=== PATIENT | female | born 1965 | race Caucasian/White ===

== ENCOUNTER → 2016-06-12 | Outpatient (CLI) | payer BC ==
[~2016-06-12] MED LIST: ASPIRIN 81MG TA81 MG PO; JINTELI 5 MCG-11 TAB PO; LEXAPRO 10 MG T10 MG PO; LOPRESSOR 25MG.25 MG PO; LORTAB 5/500 501 TAB PO; MOTRIN600 MG PO; PERCOCET 325 MG1 TA3 PO; PREDNISONE50 MG PO; PRILOSEC OTC20 MG PO; TOPROL XL25 MG PO
--- NOTE | 2016-06-12 15:28 | CARDIOVASCULAR REPORT ---
"Cerebrovascular Exam Indications: 780.2 Syncope and collapse. IMPRESSIONS 1. The bilateral vertebral arteries are patent with normal antegrade flow. 2. Study suggests less than 20% stenosis involving the right internal carotid artery. 3. Study suggests 20-49% stenosis involving the left internal carotid artery. Carotid duplex study. Complete study and Doppler flow study including spectral analysis, color and christine scale imaging. Height: Height: 154.9cm. Height: 61in. Weight: Weight: 74.8kg. Weight: 164.7lb. Body mass index: BMI: 31.2kg/m^2. Body surface area: BSA: 1.82m^2. Location: Vascular laboratory. Patient status: Outpatient. Tables: Arterial flow: + +--------+--------+ |Location |V sys |V ed | + +--------+--------+ |Right CCA - proximal|111cm/s |34.6cm/s| + +--------+--------+ |Right CCA - distal |87.4cm/s|30.2cm/s| + +--------+--------+ |Right ECA |95.9cm/s|--------| + +--------+--------+ |Right ICA - proximal|100cm/s |35.3cm/s| + +--------+--------+ |Right ICA - mid |106cm/s |39.7cm/s| + +--------+--------+ |Right ICA - distal |95.4cm/s|35.3cm/s| + +--------+--------+ |Right vertebral |46.8cm/s|--------| + +--------+--------+ |Left CCA - proximal |124cm/s |29.1cm/s| + +--------+--------+ |Left CCA - distal |79.4cm/s|24.8cm/s| + +--------+--------+ |Left ECA |85.1cm/s|--------| + +--------+--------+ |Left ICA - proximal |69.8cm/s|24.9cm/s| + +--------+--------+ |Left ICA - mid |85.1cm/s|30.1cm/s| + +--------+--------+ |Left ICA - distal |90.4cm/s|37.1cm/s| + +--------+--------+ |Left vertebral |56.8cm/s|--------| + +--------+--------+ Velocity ratios: + + + + + + | |Right, V sys|Right, V ed|Left, V sys|Left, V ed| + + + + + + |Max ICA/dist CCA|1.21 |1.31 |1.14 |1.5 | + + + + + + (Report amended ) Electronically signed by: Sanjiv Singh [id number]"
== END ==
LOC: RT 14:25
DX: R55 Syncope and collapse (principal)